=== PATIENT | female | born 1965 | race African-American/Black ===

== ENCOUNTER 2019-07-18 09:08 | Emergency (ER) | payer OTHER ==
--- NOTE | 2019-07-18 11:23 | UC ---
UC General HPI - HPI Summary HPI Summary: Here for BONILLA and congestion with left earache States she is just getting over a 10 day flu like illness. Was not evaluated for it but assumed it was the flu. She was getting better up until 3 days ago and noticed increase in mucus, BONILLA and left ear pain. No fever. No cough. No lower ext swelling. No CP. Noted to have high BP - states she lost 40 pounds and it improved her BP and has not needed to go on meds. Is followed by her PCP Meds: Reviewed - History of Current Complaint Chief Complaint: UCGeneralIllness Stated Complaint: SINUS CONESTION,DIFFICULTY BREATHING W EXERTION Time Seen by Provider: 07/18/19 11:07 Hx Last Menstrual Period: 07/14/12 Pain Intensity: 0 - Allergy/Home Medications Allergies/Adverse Reactions: Allergies Allergy/AdvReac Type Severity Reaction Status Date / Time No Known Allergies Allergy Verified 08/09/12 11:39 PMH/Surg Hx/FS Hx/Imm Hx Previously Healthy: Yes - Surgical History Surgical History: None - Social History Alcohol Use: Weekly Substance Use Type: None Smoking Status (MU): Former Smoker Review of Systems All Other Systems Reviewed And Are Negative: Yes Constitutional: Positive: Negative ENT: Positive: Ear Ache, Sinus Congestion Respiratory: Positive: Shortness Of Breath Physical Exam Triage Information Reviewed: Yes Appearance: Well-Appearing Vital Signs: Initial Vital Signs Temp 97.9 F 07/18/19 09:32 Pulse 95 07/18/19 09:32 Resp 18 07/18/19 09:32 BP 0/0 07/18/19 09:32 Pulse Ox 100 07/18/19 09:32 Vital Signs Reviewed: Yes ENT: Positive: Pharyngeal erythema, Other - clear fluid left TM, mild bulging. No purulent fluid, no erythema Neck: Positive: Supple Respiratory: Positive: Lungs clear, Decreased breath sounds Cardiovascular: Positive: RRR, Other: - soft murmur Diagnostics - Radiology CXR Radiology Interpretation Completed By: Radiologist Summary of Radiographic Findings: No acute process Course/Dx - Course Course Of Treatment: This is a 54 yr old with earache and BONILLA CXR: negative REpeat Manual BP: 190/118 Discussed with patient getting an EKG and ambulance to [facility] ED for further evaluation of her elevated blood pressure and dyspnea on exertion. 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 Understanding her risk of stroke and if she does not seek immediate attention. Sign out given to PA: Jose Alfredo Plan REcommend going directly to the Emergency room to further evaluation your shortness of breath on exertion and your elevated blood pressure IF you start having a headache, change in mental status, worsening shortness of breath or chest pain - call 911 - Diagnoses Provider Diagnosis: Dyspnea on exertion, Hypertension, Congestion of left ear Discharge ED - Sign-Out/Discharge Documenting (check all that apply): Patient Departure All imaging exams completed and their final reports reviewed: Yes - Discharge Plan Condition: Guarded Disposition: HOME-RECOMMEND TO ED Referrals: Jazlyn Vasquez MD [Primary Care Provider] - Additional Instructions: REcommend going directly to the Emergency room to further evaluation your shortness of breath on exertion and your elevated blood pressure IF you start having a headache, change in mental status, worsening shortness of breath or chest pain - call 911 - Billing Disposition and Condition Condition: GUARDED Disposition: Home-Recommend to ED
[2019-07-18 11:38] VITALS: BP 190/118
== END 2019-07-18 11:55 | disposition home health service (06) ==
LOC: UCEAST 09:08
DX: H83.8X2 Other specified diseases of left inner ear (principal); R06.00 Dyspnea, unspecified; I10 Essential (primary) hypertension; Z87.891 Personal history of nicotine dependence
CPT/HCPCS: 71046; 99212; G0463

== ENCOUNTER 2019-07-18 14:08 | Emergency (ER) | payer OTHER ==
[2019-07-18 15:32] LABS: ABS Eosinophils 0.1 10^3/ul (0-0.6); ABS Lymphocytes 1.3 10^3/ul (1.0-4.8); ABS Monocytes 0.5 10^3/ul (0-0.8); ABS Neutrophils 5.5 10^3/ul (1.5-7.7); Eosinophil % 1.3 %; Hematocrit 44 % (35-47); Hemoglobin 15.9 g/dL (12.0-16.0); Mean Corpuscular HGB Conc 36 g/dL (31-36); Mean Corpuscular Hemoglobin 34 pg (27-31); Mean Corpuscular Volume 94 fL (80-97); Mean Platelet Volume 9.8 fL (7.4-10.4); Nucleated Red Blood Cells % 0.1; Platelet Count 173 10^3/uL (150-450); Red Blood Count 4.69 10^6 /uL (3.70-4.87); Red Cell Distribution Width 14 % (10-15); White Blood Count 7.4 10^3/uL (3.5-10.8)
[2019-07-18] MEDS ORDERED: Ibuprofen TAB* 600 MG PO ONE (15:48)
[2019-07-18] MEDS ORDERED: Acetaminophen TAB* 325 MG PO ONE (15:48)
[2019-07-18] MEDS ORDERED: Hydrochlorothiazide TAB* 25 MG PO ONE (15:48)
[2019-07-18 16:00] LABS: BUN/Creatinine Ratio 13.3 (8-20); Calcium 9.2 mg/dL (8.6-10.3); EGFR African American 78.4 (>60); EGFR Non-African American 64.8 (>60); Potassium 3.7 mmol/L (3.5-5.0)
[2019-07-18 17:01] VITALS: BP 217/127
--- NOTE | 2019-07-18 17:03 | ED ---
Complex/Multi-Sys Presentation - HPI Summary HPI Summary: Patient is a 54 y/o F presenting to [facility] for evaluation of sinus congestion and elevated BP. The patient went to urgent care and was noted to have a systolic BP of 198. She was sent to ED as a result. She states that she has had issues with her BP previously, but these resolved when she lost around 50 lbs. However, patient does note that she has gained around 20 lbs recently. Patient states that she has been feeling SOB secondary to her congestion. Sx are aggravated by exertion. Patient has been taking Sudafed for her Sx. She states that she has a GROVES for which she has been taking ibuprofen but denies CP, weakness in extremities, and issues with urination. No Hx of diabetes noted. NKDA reported. She is a former smoker for 15 years, occasional alcohol usage is noted but she denies substance abuse. Home medications and allergies are reviewed. - History Of Current Complaint Chief Complaint: EDHypertension Time Seen by Provider: 07/18/19 15:26 Hx Obtained From: Patient Onset/Duration: Still Present Timing: Constant Severity Currently: Moderate Location: Pain At: - HEAD Character: Typical Headache Associated Signs And Symptoms: Positive: Headache, SOB, Other - positive - sinus congestion and elevated BP; negative - urinary Sx. Negative: Weakness, Chest Pain - Allergies/Home Medications Allergies/Adverse Reactions: Allergies Allergy/AdvReac Type Severity Reaction Status Date / Time No Known Allergies Allergy Verified 07/18/19 15:11 PMH/Surg Hx/FS Hx/Imm Hx Endocrine/Hematology History: Denies: Hx Diabetes, Hx Thyroid Disease Cardiovascular History: Denies: Hx Hypertension Respiratory History: Reports: Hx Asthma Denies: Hx Chronic Obstructive Pulmonary Disease (COPD) GI History: Denies: Hx Ulcer - Immunization History Immunizations Up to Date: Yes Infectious Disease History: No Infectious Disease History: Denies: Hx Hepatitis, Hx Human Immunodeficiency Virus (HIV), Traveled Outside the [place] in Last 30 Days - Family History Known Family History: Positive: Hypertension - Social History Alcohol Use: Weekly Substance Use Type: Reports: None Hx Tobacco Use: No Smoking Status (MU): Former Smoker Review of Systems ENT: Other - positive - sinus congestion Cardiovascular: Other - positive - elevated BP Negative: Chest Pain Positive: Shortness Of Breath Positive: no symptoms reported - no urinary Sx reported Positive: Headache. Negative: Weakness All Other Systems Reviewed And Are Negative: Yes Physical Exam - Summary Physical Exam Summary: Constitutional: Well-developed, Well-nourished, Alert. (-) Distressed Skin: Warm, Dry HENT: Normocephalic; Atraumatic; Left TM bulging. Eyes: Conjunctiva normal Neck: Musculoskeletal ROM normal neck. (-) JVD, (-) Stridor, (-) Tracheal deviation Cardio: Rhythm regular, rate normal, Heart sounds normal; Intact distal pulses; Radial pulses are 2+ and symmetric. (-) Murmur Pulmonary/Chest wall: Effort normal. (-) Respiratory distress, (-) Wheezes, (-) Rales Abd: Soft, (-) tenderness, (-) Distension, (-) Guarding, (-) Rebound Musculoskeletal: (-) Edema Lymph: (-) Cervical adenopathy Neuro: Alert, Oriented x3 Psych: Mood and affect Normal Triage Information Reviewed: Yes Vital Signs On Initial Exam: Initial Vitals Temp Pulse Resp BP Pulse Ox 98.5 F 90 18 231/148 97 07/18/19 14:15 07/18/19 14:15 07/18/19 14:15 07/18/19 14:15 07/18/19 14:15 Vital Signs Reviewed: Yes Procedures - Sedation Patient Received Moderate/Deep Sedation with Procedure: No Diagnostics - Vital Signs Vital Signs Temp Pulse Resp BP Pulse Ox 07/18/19 16:12 213/143 07/18/19 15:42 220/125 07/18/19 15:16 98.5 F 20 213/115 07/18/19 14:15 98.5 F 90 18 231/148 97 - Laboratory Lab Results: Lab Results 07/18/19 07/18/19 Range/Units 15:07 15:07 WBC 7.4 (3.5-10.8) 10^3/uL RBC 4.69 (3.70-4.87) 10^6 /uL Hgb 15.9 (12.0-16.0) g/dL Hct 44 (35-47) % MCV 94 (80-97) fL MCH 34 H (27-31) pg MCHC 36 (31-36) g/dL RDW 14 (10-15) % Plt Count 173 (150-450) 10^3/uL MPV 9.8 (7.4-10.4) fL Neut % (Auto) 73.9 % Lymph % (Auto) 17.0 % [place] % (Auto) 7.3 % Eos % (Auto) 1.3 % Baso % (Auto) 0.5 % Absolute Neuts (auto) 5.5 (1.5-7.7) 10^3/ul Absolute Lymphs (auto) 1.3 (1.0-4.8) 10^3/ul Absolute Monos (auto) 0.5 (0-0.8) 10^3/ul Absolute Eos (auto) 0.1 (0-0.6) 10^3/ul Absolute Basos (auto) 0.0 (0-0.2) 10^3/ul Absolute Nucleated RBC 0.0 10^3/ul Nucleated RBC % 0.1 Sodium 139 (135-145) mmol/L Potassium 3.7 (3.5-5.0) mmol/L Chloride 105 (101-111) mmol/L Carbon Dioxide 26 (22-32) mmol/L Anion Gap 8 (2-11) mmol/L BUN 12 (6-24) mg/dL Creatinine 0.90 (0.51-0.95) mg/dL Est GFR ( Amer) 78.4 (>60) Est GFR (Non-Af Amer) 64.8 (>60) BUN/Creatinine Ratio 13.3 (8-20) Glucose 106 H (70-100) mg/dL Calcium 9.2 (8.6-10.3) mg/dL Result Diagrams: 07/18/19 15:07 07/18/19 15:07 Lab Statement: Any lab studies that have been ordered have been reviewed, and results considered in the medical decision making process. Complex Multi-Symp Course/Dx Course Of Treatment: Patient is here with sinus congestion and hypertension. Patient [facility] for her sinus congestion and was found to be hypertensive. Patient was sent here for further evaluation. Upon arrival here , patient had no evidence of end organ damage on exam or history. Patient's main complaint was sinus congestion. Patient does have a history of hypertension which was treated with weight loss but her blood pressures [place] now elevated. Patient had blood performed showed no evidence of kidney damage. Patient was started on hydrochlorothiazide. Patient was given able blood prescription and instructed to have her primary care doctor recheck her blood pressure within the next week and adjust her meds as necessary. - Diagnoses Provider Diagnoses: HTN (hypertension), Sinus congestion Discharge ED - Sign-Out/Discharge Documenting (check all that apply): Patient Departure - discharge - Discharge Plan Condition: Stable Disposition: HOME Prescriptions: Hydrochlorothiazide TAB* [Hydrodiuril TAB*] 25 mg PO DAILY 30 Days #30 tab Patient Education Materials: Hypertension (ED) Referrals: Jazlyn Vasquez MD [Primary Care Provider] - 1 Week Additional Instructions: USE YOUR NETI POT WE DISCUSSED. TAKE TYLENOL AND MOTRIN FOR PAIN. START THE BLOOD PRESSURE MEDICATION THAT YOU HAVE BEEN PRESCRIBED. FOLLOW UP WITH YOUR PRIMARY CARE PHYSICIAN WITHIN A WEEK TO ADJUST YOUR MEDICATIONS NEEDED. PLEASE RETURN TO ED FOR CHEST PAIN, SLURRED SPEECH, SEVERE HEADACHE, AND ONE- SIDED WEAKNESS. - Billing Disposition and Condition Condition: STABLE Disposition: Home - Attestation Statements Document Initiated by Anjum: Yes Documenting Scribe: ALVINO WEN Provider For Whom Anjum is Documenting (Include Credential): TIFFANI NG MD Scribe Attestation: ALVINO Jordan, scribed for TIFFANI NG MD on 07/18/19 at 2035. Scribe Documentation Reviewed: Yes Provider Attestation: The documentation as recorded by the ALVINO amaya accurately reflects the service I personally performed and the decisions made by TIFFANI german MD Status of Scribe Document: Viewed
== END 2019-07-18 17:10 | disposition home or self-care (01) ==
LOC: ED 14:08
DX: R09.81 Nasal congestion (principal); I10 Essential (primary) hypertension; J45.909 Unspecified asthma, uncomplicated; Z87.891 Personal history of nicotine dependence
CPT/HCPCS: 36415; 80048; 85025; 99283; A9270-GY